=== PATIENT | female | born 1945 | race Caucasian/White ===

== ENCOUNTER → 2017-12-19 | Outpatient (CLI) | payer MEDICARE | LOC: M CLY 12:52 | DX: R06.02 Shortness of breath (principal); Z96.89 Presence of other specified functional implants; I10 Essential (primary) hypertension; I48.1 Persistent atrial fibrillation; R53.83 Other fatigue; E78.5 Hyperlipidemia, unspecified; M54.16 Radiculopathy, lumbar region; Z85.820 Personal history of malignant melanoma of skin | CPT/HCPCS: 71046; 84443 ==

== ENCOUNTER → 2017-12-19 | Outpatient (CLI) | payer MEDICARE ==
[2017-12-19 16:55] LABS: ANION GAP 5 MEQ/L (8-16); BLOOD UREA NITROGEN 17 MG/DL (7-18); CALCIUM LEVEL 8.9 MG/DL (8.8-10.2); CARBON DIOXIDE LEVEL 29 MEQ/L (21-32); CHLORIDE LEVEL 106 MEQ/L (98-107); CREATININE FOR GFR 1.13 MG/DL (0.55-1.30); GLOMERULAR FILTRATION RATE 50.1 (>39); GLUCOSE, FASTING 86 MG/DL (70-100); POTASSIUM SERUM 4.1 MEQ/L (3.5-5.1); SODIUM LEVEL 140 MEQ/L (136-145); THYROXINE (T4) 11.8 UG/DL (4.5-12.0)
== END ==
LOC: M CLY 11:53
DX: I10 Essential (primary) hypertension (principal); I48.1 Persistent atrial fibrillation; R53.83 Other fatigue
CPT/HCPCS: 84443

== ENCOUNTER → 2019-01-29 | Outpatient (REF) | payer MEDICARE ==
[~2019-01-29] MED LIST: AMIT50TA2 OR; ASPI81TA45 OR; ATEN25TA OR; CALC500T49 OR; CYMB1CAP5 OR; ESTR1TAB OR; HYDR25TA6 OR; IBUP400T OR; LISI10TA4 OR; LOVA20TA2 OR; MULTIVIT PO; NAPR500T OR; NEUR100C PO; OXYC1TAB32 OR; ULTR300T OR; VIT D 2000 PO; vilazodone PO
== END ==
LOC: M LAB REF 18:51
PROVIDERS: ATTEND Surgery
DX: C44.629 Squamous cell carcinoma of skin of left upper limb, including shoulder (principal); L57.8 Other skin changes due to chronic exposure to nonionizing radiation; L81.9 Disorder of pigmentation, unspecified

== ENCOUNTER → 2019-02-18 | Outpatient (REF) | payer MEDICARE ==
[~2019-02-18] MED LIST changes: +AMLO25TA PO; +ATEN25TA PO; +ATOR1TAB21 PO; +DOXY100C PO; +ECOT81TA5 PO; +ESTR1TAB PO; +GABA-843 PO; +HYDR25TAB PO; +LISI10TA4 PO; +LOVA20TA2 PO; +MULTCAP PO; +MUPI2OI TOP; +OXYC15TA76 PO; +OXYC1TAB23 PO; +OYST1TAB PO; +PACE200T PO; +PROBCAP14 PO; +TRAM1CAP17 PO; +VITA200028 PO; +XARE20TA PO
== END ==
LOC: M SFHCPLAZ 09:59
PROVIDERS: ATTEND Dermatology
DX: D04.61 Carcinoma in situ of skin of right upper limb, including shoulder (principal); C44.612 Basal cell carcinoma of skin of right upper limb, including shoulder; C44.529 Squamous cell carcinoma of skin of other part of trunk; C44.619 Basal cell carcinoma of skin of left upper limb, including shoulder

== ENCOUNTER → 2019-03-02 | Outpatient (REF) | payer MEDICARE ==
[~2019-03-02] MED LIST changes: -OXYC1TAB23 PO
[2019-03-03 12:06] LABS: BASO # 0.1 10^3/uL (0.0-0.2); BASO % 0.8 % (0.0-1.0); EOS # 0.1 10^3/uL (0.0-0.50); EOS % 1.3 % (0.0-3.0); HEMATOCRIT 42.6 % (36.0-47.0); HEMOGLOBIN 13.7 g/dl (12.0-15.5); LYMPH # 1.6 10^3/uL (1.5-4.5); LYMPH % 21.1 % (24.0-44.0); MEAN CORPUSCULAR HGB CONC 32.2 g/dl (32.0-36.5); MEAN CORPUSCULAR VOLUME 99.5 fl (80.0-96.0); MONO # 0.5 10^3/uL (0.0-0.8); MONO % 6.6 % (0.0-5.0); NEUTROPHILS # 5.2 10^3/uL (1.8-7.7); NEUTROPHILS % 69.8 % (36.0-66.0); PLATELET COUNT, AUTOMATED 320 10^3/uL (150-450); RED BLOOD COUNT 4.28 10^6/uL (4.00-5.40); WHITE BLOOD COUNT 7.5 10^3/uL (4.0-10.0)
[2019-03-03 12:29] LABS: BILIRUBIN,TOTAL 0.5 MG/DL (0.2-1.0); CALCIUM LEVEL 9.6 MG/DL (8.8-10.2); CREATININE FOR GFR 1.27 MG/DL (0.55-1.30); GLOMERULAR FILTRATION RATE 43.7 (>39); POTASSIUM SERUM 4.2 MEQ/L (3.5-5.1); TOTAL PROTEIN 7.1 GM/DL (6.4-8.2)
== END ==
LOC: M SFHCCLAY 14:27
PROVIDERS: ATTEND Family Medicine
DX: I10 Essential (primary) hypertension (principal)

== ENCOUNTER → 2019-03-02 | Outpatient (CLI) | payer MEDICARE ==
[~2019-03-02] MED LIST changes: -AMLO25TA PO; -ATEN25TA PO; -ATOR1TAB21 PO; -DOXY100C PO; -ECOT81TA5 PO; -ESTR1TAB PO; -GABA-843 PO; -HYDR25TAB PO; -LISI10TA4 PO; -LOVA20TA2 PO; -MULTCAP PO; -MUPI2OI TOP; -OXYC15TA76 PO; -OYST1TAB PO; -PACE200T PO; -PROBCAP14 PO; -TRAM1CAP17 PO; -VITA200028 PO; -XARE20TA PO
--- NOTE | 2019-03-02 16:33 | REP ---
HISTORY: Hypertension. COMPARISON: 12/19/2017 FINDINGS: The superior mediastinal structures are midline. The cardiac silhouette is unremarkable in size, shape and position. The diaphragmatic surfaces of the lungs are regular and the costophrenic angles are clear. The pulmonary hernandez are clear. The imaged osseous structures are intact. IMPRESSION: There is no acute cardiopulmonary disease. No significant change from the prior exam. Electronically Signed by Joshua Caruso DO 03/02/2019 04:37 P
== END ==
LOC: M CLY 15:21
PROVIDERS: ATTEND Family Medicine
DX: I10 Essential (primary) hypertension (principal)

== ENCOUNTER 2019-03-09 08:11 | Day surgery (SDC) | payer MEDICARE ==
[~2019-03-09] VITALS: Ht 154.9 cm; Wt 69.9 kg
[~2019-03-09 08:11] MED LIST changes: +AMLO25TA PO; +ATEN25TA PO; +ATOR1TAB21 PO; +CLINDAMYCIN 300 MG in IV 1 EA IV ONE; +DOXY100C PO; +ECOT81TA5 PO; +ESTR1TAB PO; +GABA-843 PO; +HYDR25TAB PO; +LISI10TA4 PO; +LOVA20TA2 PO; +LR 1,000 ML IV ONE; +MULTCAP PO; +MUPI2OI TOP; +OXYC15TA76 PO; +OYST1TAB PO; +PACE200T PO; +PROBCAP14 PO; +TRAM1CAP17 PO; +VITA200028 PO; +XARE20TA PO
[2019-03-09] MEDS ORDERED: CLINDAMYCIN 300 MG in IV 1 EA IV ONE (08:45)
[2019-03-09] MEDS ORDERED: LIDOCAINE 2% W/EPIN INJ 20ML **PRES FREE As Ordered ONE ×2 (09:17→09:25)
[2019-03-09 09:39] LABS: INR 0.95; PROTHROMBIN TIME 12.4 SECONDS (11.8-14.0)
[2019-03-09 09:40] LABS: PARTIAL THROMBOPLASTIN TIME 31.8 SECONDS (25.0-38.4)
[2019-03-09] MEDS ORDERED: fentaNYL 100 MCG/2 ML INJECTION (J3010) As Ordered ONE (10:08)
[2019-03-09] MEDS ORDERED: MIDAZOLAM INJ 2 MG/2 ML VIAL (J2250) As Ordered ONE (10:08)
[2019-03-09] MEDS ORDERED: LIDOCAINE 2% MDV 20 ML VIAL As Ordered ONE (10:14)
[2019-03-09] MEDS ORDERED: propofoL 200 MG/20 ML VIAL As Ordered ONE (10:16)
[2019-03-09] MEDS ORDERED: BACITRACIN PWD 50,000 UNITS VIAL As Ordered ONE (10:17)
[2019-03-09] MEDS ORDERED: BACITRACIN OINT 30GM As Ordered ONE (10:17)
--- NOTE | 2019-03-09 12:14 | POST-OPPD ---
Postoperative Procedure Note Date Of Procedure: Mar 09, 2019 PREOPERATIVE DIAGNOSIS: Multiple malignant lesions POSTOPERATIVE DIAGNOSIS: same FINDINGS: Lesions: back 1.5x1cm, Right index finger 1x1cm (ulnar side), Distal right arm 1x1cm, Proximal right arm 0.5x1cm, left shoulder 0.5x0.5cm PROCEDURE: Excision multiple malignant lesion with margins and frozen section Right index finger, upper back, distal right arm, proximal right arm, left shoulder. Split thickness skin graft to right index finger open wound, donor site right volar upper forearm. SURGEON: Dr Reese ANESTHESIA: Local with sedation SPECIMENS: Frozen sections: upper back, right index finger, right proximal arm, right distal arm, left shoulder ESTIMATED BLOOD LOSS: 3cc REPLACED: none DRAINS: none COMPLICATIONS: none POSTOPERATIVE CONDITION: stable BROOKLYNN REESE DO Mar 09, 2019 12:14
[2019-03-09] MEDS ORDERED: OXYC1TAB23 PO (12:17)
[2019-03-09 13:25] VITALS: BP 151/66
--- NOTE | 2019-03-10 17:03 | RO ---
DATE OF PROCEDURE: 03/09/2019 PREPROCEDURE DIAGNOSIS: Multiple malignant lesions. POSTPROCEDURE DIAGNOSIS: Multiple malignant lesions. OPERATIVE PROCEDURE: Excision multiple malignant lesions with margins and frozen section right index finger, upper back, distal right arm, proximal right arm and left shoulder with thickness skin graft to right index finger open wound. Donor site is right volar upper forearm. SURGEON: Gianna Ponce DO ANESTHESIA: Local with sedation. SPECIMENS: Frozen sections: upper back, right index finger, right proximal arm, right distal arm and left shoulder. ESTIMATED BLOOD LOSS: 3 mL REPLACED: None. DRAINS: None. COMPLICATIONS: None. PROCEDURE: This is a 73-year-old female who was seen in our office who had multiple biopsies done in dermatology office with all positive for malignant lesions, so she is scheduled to have a formal excision and also the index finger lesion is the larger one and is going to require reconstruction for closure. Therefore, patient has chosen to go to the operating room and taking care of all of the lesions simultaneously. All risks and benefits, and alternatives discussed with the patient in detail and she is ready to proceed. We marked out all our lesions preoperatively with patient looking through and confirming all the lesions to be in correct locations. She was brought into the operating room, placed in supine position. Preoperative antibiotics were given. Sequential stockings placed on the lower calves. She was prepped and draped in the usual sterile fashion. Applied sedation given to the patient while we were giving the local anesthetic. We used 2% lidocaine with epinephrine for the back of the neck, for proximal and distal arm and for the left shoulder. After the effects of anesthesia were ensured, we made an elliptical incision on her back lesion first. The lesion measures 1.5 x 1 cm, 4 mm margins were included into the incision and the excised lesion was marked at 12-o'clock with a suture and sent to pathology. Undermining were done in order to approximate the wound and it was closed in layers with interrupted #4-0 Monocryl and a#5-0 Monocryl sutures. Steri-Strips were applied. The pathology came back with clear margins for that lesion. We then turned out attention to the forearm for our distal and proximal lesion. The distal lesion was excised first. It is 1 x 1 cm in diameter. 4 mm margins were obtained and the full thickness excision was done. Again, sutures marking 12-o'clock on that lesion. It was sent to pathology for frozen section. After the excision was completed, the wound edges were undermined and then closed with interrupted #4-0 Monocryl and #5-0 Monocryl sutures . Then we turned our attention to the proximal arm and again that lesion is 0.5 x 1 cm in diameter. 4 mm margins were outlined and excision was done using #10 blade. Hemostasis was obtained. The suture was marked at 12-o'clock on the specimen and was sent for frozen section and then the wound was closed with interrupted #4-0 Monocryl sutures and #5-0 Monocryl sutures. The right index finger is an open wound at this time and it is 1 x 1 cm in diameter. It is on the right index finger on the ulnar side. So, we had given a digital block before that. Incision was carried out with 1% lidocaine plain. After the effects of anesthesia were assured the 4 mm margins were outlined and a full thickness excision was done. Sutures marking 12-o'clock at that lesion. Then the excision for the left shoulder next, which is 0.5 x 0.5 cm lesion. 4 mm margins were outlined again and the lesion was excised completely, full thickness. 12-o'clock was marked with a suture and then it was sent for frozen section. The left shoulder was closed with interrupted #4-0 Monocryl and #5-0 Monocryl sutures. All the frozen sections came back with clear margins and we began our reconstruction for the index finger. The donor site chosen is a volar side of the forearm, proximal end. The patient has very fragile, very thin skin, so at this point the lesion on the index finger is measuring at 2 x 0.7 cm in diameter so with raised full thickness skin graft using #10 blade with the skin like I mentioned is very, very thin. We raised the graft from the donor site and then it was sutured in place with interrupted 5-0 plain sutures into the index finger defect. A compression dressing, bolster dressing and compression dressing were placed in-between her second and third digits creating a good occlusion there for the graft and patient placed in a bulky dressing and a volar splint. She was comfortable throughout the whole procedure. She was transferred to the recovery room in stable condition. JAMES
== END 2019-03-09 13:25 | disposition home or self-care (01) ==
LOC: M SDC 08:11
PROVIDERS: ATTEND Plastic Surgery Surgery of the Hand
DX: C44.529 Squamous cell carcinoma of skin of other part of trunk (principal); C44.92 Squamous cell carcinoma of skin, unspecified; C44.629 Squamous cell carcinoma of skin of left upper limb, including shoulder; C44.619 Basal cell carcinoma of skin of left upper limb, including shoulder; I48.91 Unspecified atrial fibrillation; E78.5 Hyperlipidemia, unspecified; I10 Essential (primary) hypertension; Z79.01 Long term (current) use of anticoagulants; Z87.891 Personal history of nicotine dependence; Z79.899 Other long term (current) drug therapy; Z88.2 Allergy status to sulfonamides; Z88.8 Allergy status to other drugs, medicaments and biological substances
CPT/HCPCS: 11600; 11601; 11602; 11621; 15220; 36415; 85610; 85730; 88305; 88331; 88332; J2250; J3010

== ENCOUNTER → 2020-04-01 | Outpatient (CLI) | payer MEDICARE ==
[~2020-04-01] MED LIST changes: -CLINDAMYCIN 300 MG in IV 1 EA IV ONE; -LR 1,000 ML IV ONE; +OXYC-1 PO; -OXYC15TA76 PO; +OXYC1TAB23 PO
== END ==
LOC: M LABSMTC 09:56
PROVIDERS: ATTEND Orthopaedic Surgery
DX: Z20.828 Contact with and (suspected) exposure to other viral communicable diseases (principal)

== ENCOUNTER → 2021-01-08 | Outpatient (REF) | payer MEDICARE ==
[~2021-01-08] MED LIST changes: +GABA-282 PO; -GABA-843 PO; +HYDR-3490 PO; -HYDR25TAB PO; +LISI10TA22 PO; -LISI10TA4 PO
[2021-01-08 16:02] LABS: BASO # 0.1 10^3/uL (0.0-0.2); BASO % 0.7 % (0.0-1.0); EOS # 0.1 10^3/uL (0.0-0.5); EOS % 0.9 % (0.0-3.0); HEMATOCRIT 46.9 % (36.0-47.0); HEMOGLOBIN 14.8 g/dl (12.0-15.5); LYMPH % 23.1 % (24.0-44.0); MEAN CORPUSCULAR HEMOGLOBIN 30.9 pg (27.0-33.0); MEAN CORPUSCULAR HGB CONC 31.6 g/dl (32.0-36.5); MEAN CORPUSCULAR VOLUME 97.9 fl (80.0-96.0); MONO # 0.5 10^3/uL (0.0-0.8); MONO % 5.5 % (2.0-8.0); NEUTROPHILS % 69.2 % (36.0-66.0); PLATELET COUNT, AUTOMATED 331 10^3/uL (150-450); RED BLOOD COUNT 4.79 10^6/uL (4.00-5.40); WHITE BLOOD COUNT 8.6 10^3/uL (4.0-10.0)
[2021-01-08 16:36] LABS: ALBUMIN 4.1 GM/DL (3.2-5.2); BILIRUBIN,TOTAL 0.6 MG/DL (0.2-1.0); CALCIUM LEVEL 9.6 MG/DL (8.8-10.2); CREATININE FOR GFR 1.04 MG/DL (0.55-1.30); FREE T4 1.15 NG/DL (0.76-1.46); GLOMERULAR FILTRATION RATE 54.7 (>39); POTASSIUM SERUM 4.8 MEQ/L (3.5-5.1); THYROID STIMULATING HORMONE 1.36 uIU/ML (0.358-3.740); TOTAL PROTEIN 7.3 GM/DL (6.4-8.2); TOTAL T3 106.2 NG/DL (60.0-181.0)
== END ==
LOC: M SFHCCLAY 12:34
PROVIDERS: ATTEND Family Medicine
DX: I10 Essential (primary) hypertension (principal); E55.9 Vitamin D deficiency, unspecified; E03.9 Hypothyroidism, unspecified

== ENCOUNTER → 2021-01-09 | Outpatient (CLI) | payer MEDICARE ==
--- NOTE | 2021-01-09 14:43 | REP ---
INDICATION: R23.2, HOT FLASHES COMPARISON: 03/02/2019 TECHNIQUE: PA and lateral. FINDINGS: The mediastinum and cardiac silhouette are normal. The lung hernandez are clear and without acute consolidation, effusion, or pneumothorax. The skeletal structures demonstrate osteopenia and degenerative changes. Epidural stimulator at the thoracic level noted along with IVC filter and posterior lumbar fixation.. IMPRESSION: No acute cardiopulmonary process. <Electronically signed by Waqas Brady > 01/09/21 [id number]
== END ==
LOC: M CLY 14:16
PROVIDERS: ATTEND Family Medicine
DX: R23.2 Flushing (principal)
CPT/HCPCS: 71046; 81002; 87086; G0463

== ENCOUNTER → 2021-01-09 | Outpatient (REF) | payer MEDICARE | LOC: M SFHCCLAY 11:31 | PROVIDERS: ATTEND Family Medicine | DX: R23.2 Flushing (principal); Z79.899 Other long term (current) drug therapy ==

== ENCOUNTER → 2021-03-28 | Outpatient (REF) | payer MEDICARE ==
[~2021-03-28] MED LIST changes: -DOXY100C PO; +DOXY100C3 PO
[2021-03-28 15:55] LABS: BASO # 0.1 10^3/uL (0.0-0.2); EOS # 0.1 10^3/uL (0.0-0.5); EOS % 1.7 % (0.0-3.0); HEMATOCRIT 45.6 % (36.0-47.0); HEMOGLOBIN 14.4 g/dl (12.0-15.5); LYMPH # 1.7 10^3/uL (1.5-5.0); LYMPH % 19.6 % (24.0-44.0); MEAN CORPUSCULAR HEMOGLOBIN 32.3 pg (27.0-33.0); MEAN CORPUSCULAR HGB CONC 31.6 g/dl (32.0-36.5); MEAN CORPUSCULAR VOLUME 102.2 fl (80.0-96.0); MONO # 0.5 10^3/uL (0.0-0.8); MONO % 5.7 % (2.0-8.0); NEUTROPHILS % 71.6 % (36.0-66.0); PLATELET COUNT, AUTOMATED 357 10^3/uL (150-450); RED BLOOD COUNT 4.46 10^6/uL (4.00-5.40); WHITE BLOOD COUNT 8.4 10^3/uL (4.0-10.0)
[2021-03-28 16:41] LABS: ALBUMIN 3.9 GM/DL (3.2-5.2); BILIRUBIN,TOTAL 0.5 MG/DL (0.2-1.0); CALCIUM LEVEL 9.5 MG/DL (8.8-10.2); CREATININE FOR GFR 1.18 MG/DL (0.55-1.30); FREE T4 1.18 NG/DL (0.76-1.46); GLOMERULAR FILTRATION RATE 47.3 (>39); POTASSIUM SERUM 4.4 MEQ/L (3.5-5.1); THYROID STIMULATING HORMONE 2.28 uIU/ML (0.358-3.740)
== END ==
LOC: M SFHCCLAY 10:29
PROVIDERS: ATTEND Family Medicine
DX: I10 Essential (primary) hypertension (principal); E55.9 Vitamin D deficiency, unspecified; E03.9 Hypothyroidism, unspecified

== ENCOUNTER → 2021-12-18 | Outpatient (REF) | payer MEDICARE ==
[2021-12-18 17:03] LABS: FREE T4 1.21 NG/DL (0.76-1.46); THYROID STIMULATING HORMONE 0.901 uIU/ML (0.358-3.740)
== END ==
LOC: M SFHCCLAY 10:37
PROVIDERS: ATTEND Family Medicine
DX: E03.9 Hypothyroidism, unspecified (principal)

== ENCOUNTER → 2022-04-02 | Outpatient (REF) | payer MEDICARE ==
[2022-04-02 17:15] LABS: BASO # 0.1 10^3/uL (0.0-0.2); BASO % 0.8 % (0.0-1.0); EOS # 0.1 10^3/uL (0.0-0.5); EOS % 0.9 % (0.0-3.0); HEMATOCRIT 44.7 % (36.0-47.0); HEMOGLOBIN 14.1 g/dl (12.0-15.5); LYMPH # 1.9 10^3/uL (1.5-5.0); LYMPH % 23.8 % (24.0-44.0); MEAN CORPUSCULAR HEMOGLOBIN 32.3 pg (27.0-33.0); MEAN CORPUSCULAR HGB CONC 31.5 g/dl (32.0-36.5); MEAN CORPUSCULAR VOLUME 102.3 fl (80.0-96.0); MONO # 0.5 10^3/uL (0.0-0.8); MONO % 6.1 % (2.0-8.0); NEUTROPHILS # 5.4 10^3/uL (1.5-8.5); PLATELET COUNT, AUTOMATED 361 10^3/uL (150-450); RED BLOOD COUNT 4.37 10^6/uL (4.00-5.40)
[2022-04-02 19:10] LABS: ALBUMIN 3.9 GM/DL (3.2-5.2); BILIRUBIN,TOTAL 0.5 MG/DL (0.2-1.0); CALCIUM LEVEL 9.7 MG/DL (8.8-10.2); CREATININE FOR GFR 1.05 MG/DL (0.55-1.30); FREE T4 1.28 NG/DL (0.76-1.46); POTASSIUM SERUM 4.6 MEQ/L (3.5-5.1); THYROID STIMULATING HORMONE 0.201 uIU/ML (0.358-3.740); TOTAL PROTEIN 7.2 GM/DL (6.4-8.2)
[2022-04-02 19:50] LABS: TOTAL T3 118.3 NG/DL (60.0-181.0)
== END ==
LOC: M SFHCCLAY 11:36
PROVIDERS: ATTEND Family Medicine
DX: E03.9 Hypothyroidism, unspecified (principal); R23.2 Flushing; I10 Essential (primary) hypertension

== ENCOUNTER → 2022-11-18 | Outpatient (REF) | payer MEDICARE ==
[2022-11-18 17:24] LABS: FREE T4 1.09 NG/DL (0.89-1.76); THYROID STIMULATING HORMONE 2.462 uIU/ML (0.55-4.78)
[2022-11-18 17:26] LABS: ALBUMIN 3.8 G/DL (3.2-5.2); BILIRUBIN,TOTAL 0.4 MG/DL (0.3-1.2); CALCIUM LEVEL 9.2 MG/DL (8.3-10.6); CREATININE FOR GFR 0.97 MG/DL (0.55-1.30); POTASSIUM SERUM 4.5 MMOL/L (3.5-5.1)
== END ==
LOC: M SFHCCLAY 09:45
PROVIDERS: ATTEND Family Medicine
DX: I10 Essential (primary) hypertension (principal); E03.9 Hypothyroidism, unspecified

== ENCOUNTER → 2023-02-19 | Outpatient (REF) | payer MEDICARE ==
[2023-02-19 17:07] LABS: BASO # 0.1 10^3/uL (0.0-0.2); BASO % 0.7 % (0.0-1.0); EOS # 0.1 10^3/uL (0.0-0.5); EOS % 0.4 % (0.0-3.0); HEMATOCRIT 39.5 % (36.0-47.0); HEMOGLOBIN 12.3 g/dl (12.0-15.5); LYMPH # 1.5 10^3/uL (1.5-5.0); LYMPH % 12.1 % (24.0-44.0); MEAN CORPUSCULAR HEMOGLOBIN 31.1 pg (27.0-33.0); MEAN CORPUSCULAR HGB CONC 31.1 g/dl (32.0-36.5); MONO # 0.5 10^3/uL (0.0-0.8); MONO % 3.8 % (2.0-8.0); NEUTROPHILS # 9.9 10^3/uL (1.5-8.5); NEUTROPHILS % 82.5 % (36.0-66.0); PLATELET COUNT, AUTOMATED 370 10^3/uL (150-450); RED BLOOD COUNT 3.95 10^6/uL (4.00-5.40)
[2023-02-19 17:21] LABS: FERRITIN 142.1 NG/ML (7.3-270.7); THYROID STIMULATING HORMONE 2.356 uIU/ML (0.55-4.78)
[2023-02-19 17:22] LABS: ALBUMIN 3.1 G/DL (3.2-5.2); ALKALINE PHOSPHATASE 188 U/L (46-116); ALT/SGPT 14 U/L (7.0-40); AST/SGOT 21 U/L (<34); BILIRUBIN,TOTAL 0.4 MG/DL (0.3-1.2); BLOOD UREA NITROGEN 19 MG/DL (9-23); CARBON DIOXIDE LEVEL 26 MMOL/L (20-31); CHLORIDE LEVEL 105 MMOL/L (98-107); CREATININE FOR GFR 0.88 MG/DL (0.55-1.30); FREE T4 1.18 NG/DL (0.89-1.76); GLOMERULAR FILTRATION RATE > 60.0 (>39); GLUCOSE, FASTING 92 MG/DL (74-106); IRON (FE) 61 UG/DL (50-170); PERCENT SATURATION 18.4 % (13.2-45.0); POTASSIUM SERUM 5.4 MMOL/L (3.5-5.1); SODIUM LEVEL 140 MMOL/L (136-145); TOTAL IRON BINDING CAPACITY 332 UG/DL (250-425); TOTAL PROTEIN 7.1 G/DL (5.7-8.2)
== END ==
LOC: M SFHCCLAY 09:25
PROVIDERS: ATTEND Family Medicine
DX: E03.9 Hypothyroidism, unspecified (principal); E55.9 Vitamin D deficiency, unspecified; D64.9 Anemia, unspecified; I10 Essential (primary) hypertension

== ENCOUNTER → 2025-03-17 | Outpatient (CLI) | payer MEDICARE ==
[~2025-03-17] MED LIST changes: +GABA-1172 PO; -GABA-282 PO
== END ==
LOC: M CLY 10:23
PROVIDERS: ATTEND Family Medicine
DX: G57.91 Unspecified mononeuropathy of right lower limb (principal); M79.671 Pain in right foot; Z53.9 Procedure and treatment not carried out, unspecified reason

== ENCOUNTER → 2025-03-17 | Outpatient (CLI) | payer MEDICARE | LOC: M CLY 10:32 | PROVIDERS: ATTEND Family Medicine | DX: G57.91 Unspecified mononeuropathy of right lower limb (principal); M79.671 Pain in right foot ==